=== PATIENT | male | born 1975 | race Caucasian/White ===

== ENCOUNTER 2023-04-29 19:00 | Emergency (ER) | payer OTHER ==
[2023-04-29 20:36] LABS: BASOPHILS ABSOLUTE AUTO 0.03 K/uL (0.00-0.10); BASOPHILS PERCENT AUTO 0.3 % (0.1-1.3); HEMOGLOBIN 16.8 g/dL (12.9-16.9); IMMATURE GRAN ABSOLUTE AUTO 0.02 K/uL (0.00-0.23); IMMATURE GRAN PERCENT AUTO 0.2 % (0.0-0.7); LYMPHOCYTES ABSOLUTE AUTO 3.24 K/uL (0.8-3.3); LYMPHOCYTES PERCENT AUTO 33.9 % (11.4-47.7); MEAN CORPUSCULAR HEMOGLOBIN 29.1 pg (31.6-35.5); MEAN CORPUSCULAR HGB CONC 34.3 g/dL (31.6-35.5); MEAN CORPUSCULAR VOLUME 84.8 fL (81.4-99.0); MONOCYTES ABSOLUTE AUTO 0.82 K/uL (0.20-0.90); MONOCYTES PERCENT AUTO 8.6 % (3.3-12.6); NEUTROPHILS ABSOLUTE AUTO 5.35 K/uL (1.0-7.6); PLATELET COUNT,PLT 254 K/uL (130-375); RED BLOOD CELL COUNT 5.78 M/uL (4.14-5.76); WHITE BLOOD CELL COUNT,WBC 9.6 K/uL (3.2-11.0)
[2023-04-29 20:57] LABS: ANION GAP 9.8 mmol/L (5.0-14.0); CREATININE 1.1 mg/dL (0.8-1.3); EST CRCL DRUG DOSING (CG) 97.56 mL/min; POTASSIUM,K 4.2 mmol/L (3.6-5.2)
== END 2023-04-29 21:53 | disposition home or self-care (01) ==
LOC: JP.ED 19:00
DX: I48.19 Other persistent atrial fibrillation (principal); I10 Essential (primary) hypertension
CPT/HCPCS: 36415; 80048; 84484; 85025; 93005; 99285